=== PATIENT | female | born 1980 | race Caucasian/White ===

== ENCOUNTER 2019-08-26 09:20 | Emergency (ER) | payer BC, MEDICAID ==
--- NOTE | 2019-08-26 11:01 | UC ---
Skin Complaint HPI - HPI Summary HPI Summary: 38-year-old female who has a developing rash on her arms which is itchy. She states she has been under a lot of stress and many times will break out in itchy rash because of that. Her blood pressure is mildly elevated today and she has an appointment with her primary care provider to evaluate that. - History of Current Complaint Chief Complaint: UCSkin Time Seen by Provider: 08/26/19 10:59 Stated Complaint: SKIN COMPLAINT Hx Obtained From: Patient Hx Last Menstrual Period: 08/24/19 ?: No Onset/Duration: Gradual Onset Skin Exposure Onset/Duration: Days Ago Timing: Constant Onset Severity: Mild Current Severity: Mild Pain Intensity: 0 Location: Diffuse, Other - Only on arms Character: Pruritus Aggravating Factor(s): Touch Alleviating Factor(s): Nothing Associated Signs & Symptoms: Positive: Negative Related History: Other: - Stress - Allergy/Home Medications Allergies/Adverse Reactions: Allergies Allergy/AdvReac Type Severity Reaction Status Date / Time bee pollen Allergy Swelling Verified 08/26/19 10:18 iodine Allergy Rash Verified 08/26/19 10:18 Penicillins Allergy Rash Verified 08/26/19 10:18 seafood Allergy Rash Uncoded 08/26/19 10:18 Home Medications: Home Medications Acetaminophen [Tylenol Extra Strength] 1,000 mg PO Q8H PRN 08/26/19 [History Confirmed 08/26/19] PMH/Surg Hx/FS Hx/Imm Hx Previously Healthy: Yes - Surgical History Surgical History: Yes Surgery Procedure, Year, and Place: gallbladder, umbilical and burt inguinal - Family History Known Family History: Positive: Non-Contributory - Social History Alcohol Use: None Substance Use Type: None Smoking Status (MU): Light Every Day Tobacco Smoker Type: Cigarettes Have You Smoked in the Last Year: Yes Household Exposure Type: Cigarettes Review of Systems All Other Systems Reviewed And Are Negative: Yes Skin: Positive: Rash - Rash on arms many areas appear to be healing Is Patient Immunocompromised?: No Physical Exam Triage Information Reviewed: Yes Appearance: Well-Appearing, No Pain Distress, Well-Nourished Vital Signs: Initial Vital Signs Temp 98.9 F 08/26/19 10:20 Pulse 70 08/26/19 10:20 Resp 18 08/26/19 10:20 BP 136/102 08/26/19 10:20 Pulse Ox 100 08/26/19 10:20 Vital Signs Reviewed: Yes Musculoskeletal Exam: Normal Neurological Exam: Normal Psychological Exam: Normal Skin: Positive: Rashes - Patient has areas on her arms, rash-like, not hives, several areas appear to be healing. She states this is typical for her when she gets a lot of stress that she starts scratching herself. Course/Dx - Course Course Of Treatment: Usually she is given prednisone. With her blood pressure elevated like it is I' m putting her on a Medrol Dosepak and she is to monitor her blood pressure and follow-up with her primary care provider. She states she has an appointment for blood pressure evaluation with her primary care provider. - Diagnoses Provider Diagnosis: Rash and nonspecific skin eruption, Elevated blood pressure reading Discharge ED - Sign-Out/Discharge Documenting (check all that apply): Patient Departure All imaging exams completed and their final reports reviewed: No Studies - Discharge Plan Condition: Good Disposition: HOME Prescriptions: methylPREDNISolone [Medrol Dosepak 4 MG*] 4 mg PO .SEE BOLA INSTRUCTION #1 bola Patient Education Materials: Urticaria (ED) Forms: *Work Release [facility] [[facility]] No Primary Care Phys,[facility] [Primary Care Provider] - Additional Instructions: Avoid scratching, take your blood pressure daily when you are relaxed, documented and follow-up with your primary care provider for further care regarding elevated blood pressure. Follow-up with your primary care provider if no improvement in the rash in 4 or 5 days. - Billing Disposition and Condition Condition: GOOD Disposition: Home - Attestation Statements Provider Attestation: This patient was not seen by me. I was available for consult. Chart reviewed. RADHA
== END 2019-08-26 11:16 | disposition home or self-care (01) ==
LOC: UCCORT 09:20
DX: R21 Rash and other nonspecific skin eruption (principal); R03.0 Elevated blood-pressure reading, without diagnosis of hypertension; Z88.3 Allergy status to other anti-infective agents; Z91.030 Bee allergy status; Z88.0 Allergy status to penicillin; Z91.013 Allergy to seafood; F17.210 Nicotine dependence, cigarettes, uncomplicated
CPT/HCPCS: 99202; G0463